=== PATIENT | male | born 1980 | race Caucasian/White ===

== ENCOUNTER 2020-03-05 21:16 | Inpatient (IN) | payer MEDICAID, SELFPAY ==
[~2020-03-05] VITALS: Ht 180.3 cm; Wt 150.6 kg
--- NOTE | 2020-03-05 21:16 | NUR ---
PT TAKEN TO BED 9
--- NOTE | 2020-03-05 21:20 | NUR ---
39 YEAR OLD MALE COMPLAINS OF SHORTNESS OF BREATHE X 3 DAYS. PT STATES HE STARTED DEVELOPING PAIN ON INSPIRATION AND UNABLE TO TAKE DEEP BREATHES. PT STATES UNABLE TO SLEEP X 3 DAYS AND UNABLE TO EAT ANYTHING BUT WATER X 3 DAYS. PT AOX4, BREATHING EVEN AND LABORED/SHALLOW, SKIN WARM AND DRY. BED IN LOWEST POSITION, LOCKED, BED RAIL UPX1. COVID PRECAUTIONS PER PROTOCOL. PT PLACED ON BEDSIDE MONITOR, ERMD MADE AWARE. PMH - HX PNEUMONIA X 8 YR AGO ALLERGIES - NKA
[2020-03-05] MEDS ORDERED: NACL 0.9% 1,000 ML IV ONE (21:30)
--- NOTE | 2020-03-05 21:48 | NUR ---
X-Ray at bedside.
--- NOTE | 2020-03-05 21:59 | NUR ---
INFLUENZA AND COVID SWAB SENT TO LAB
--- NOTE | 2020-03-05 22:02 | NUR ---
Dr. Waldron examining patient.
[2020-03-05 22:27] LABS: BASOPHILS % (AUTO) 0.7 % (0.0-2.0); HEMATOCRIT 41.4 % (36-52); HEMOGLOBIN 13.9 g/dL (12.0-18.0); LYMPHOCYTES # (AUTO) 1.2 K/uL (2.0-11.5); LYMPHOCYTES % (AUTO) 21.8 % (20.5-51.1); MEAN CORPUSCULAR HEMOGLOBIN 27 pg (27-31); MEAN CORPUSCULAR HGB CONC 34 g/dL (33-37); MEAN CORPUSCULAR VOLUME 79.2 fL (80-94); MONOCYTES # (AUTO) 0.7 K/uL (0.8-1.0); MONOCYTES % (AUTO) 12.4 % (1.7-9.3); NEUTROPHILS # (AUTO) 3.6 K/uL (1.8-7.7); NEUTROPHILS % (AUTO) 65.1 % (42.2-75.2); PLATELET COUNT (AUTO) 181 K/uL (140-450); RED BLOOD CELL COUNT(AUTO) 5.23 MIL/uL (4.20-6.10); RED CELL DISTRIBUTION WIDTH 14.8 % (11.6-13.7); WHITE BLOOD COUNT (AUTO) 5.6 K/uL (4.8-10.8)
--- NOTE | 2020-03-05 22:30 | NUR ---
PT O2 SATURATION DROPPED TO 89%, RR 45. PT PLACED ON 6L O2 NASAL CANNULA. ERMD MADE AWARE
--- NOTE | 2020-03-05 22:31 | NUR ---
RR 35, SPO2 97%. BREATHING NOT LABORED
[2020-03-05 22:38] LABS: C-REACTIVE PROTEIN QUANT 7.7 mg/dL (0.0-0.9)
[2020-03-05 22:43] LABS: LACTATE DEHYDROGENASE 206 U/L (85-227)
[2020-03-05 22:48] LABS: ANION GAP 16.8 (8-16); CREATININE 1.4 mg/dL (0.6-1.3); POTASSIUM 3.8 mmol/L (3.5-5.1)
[2020-03-05 22:55] LABS: ALBUMIN 3.6 g/dL (3.4-5.0); TOTAL BILIRUBIN 0.5 mg/dL (0.0-1.0)
[2020-03-05] MEDS ORDERED: HYDROcodone/APAP 7.5/325 MG 1 TAB PO PRN (22:55)
[2020-03-05] MEDS ORDERED: ACETAMINOPHEN 325 MG TAB PO PRN (22:55)
[2020-03-05] MEDS ORDERED: cefTRIAXone 1,000 MG VIAL ONE (22:55)
[2020-03-05] MEDS ORDERED: ONDANSETRON 4 MG/2 ML VIAL IVP PRN (22:55)
[2020-03-05 23:02] LABS: PROTHROMBIN TIME 10.3 secs (10.8-13.4)
--- NOTE | 2020-03-05 23:06 | NUR ---
PT AWAITING FOR POSSIBLE ADMISSION.
--- NOTE | 2020-03-05 23:15 | NUR ---
Dr. Tejada examining patient.
[2020-03-05 23:32] LABS: MAGNESIUM 1.7 mg/dL (1.8-2.4); THYROID STIMULATING HORMONE 1.6 uIU/mL (0.34-3.74)
--- NOTE | 2020-03-05 23:40 | NUR ---
Patient will be admitted to care of DR KEMP. Admited to TELE. Will go to room 114. Belongings list completed. Report to FADIA HERRERA.
--- NOTE | 2020-03-05 23:40 | NUR ---
PT ARRIVED FROM ER VIA WHEELCHAIR. RECEIVED REPORT FROM ER NURSE. PT IS AWAKE, ALERT, AND ORIENTED. AMBULATORY. ABLE TO MAKE NEEDS KNOWN. RESPIRATIONS ARE EVEN AND UNLABORED. PT IS ON O2 6LPM/NC. SKIN IS WARM, DRY, AND INTACT. ABDOMEN IS ROUND, SOFT, AND NON-TENDER. IV ACCESS NOTED ON R WRIST G22. SALINE LOCKED. PT DENIES ANY PAIN OR DISCOMFORT AT THIS TIME. PT IS CALM AND COOPERATIVE TO CARE. PT ORIENTED TO ROOM. VS TAKEN. MRSA SWAB COLLECTED. PLAN OF CARE DISCUSSED. NO QUESTIONS AT THIS TIME. CALL LIGHT WITHIN REACH. WILL CONTINUE TO MONITOR.
[2020-03-06] MEDS ORDERED: MAGNESIUM OXIDE 400 MG TAB PO ONE (00:15)
--- NOTE | 2020-03-06 01:30 | NUR ---
RT (SOTERO) SUGGESTED TO LOWER O2 TO 2LPM. PT NOW ON O2 2LPM/NC. PT NOT IN DISTRESS. O2 SAT 95%. WILL CONTINUE TO MONITOR.
[2020-03-06] MEDS ORDERED: MAGNESIUM OXIDE 400 MG TAB ONE (03:04)
[2020-03-06 04:00] VITALS: BP 135/92
--- NOTE | 2020-03-06 04:00 | NUR ---
VITAL SIGNS WITHIN NORMAL LIMITS. WOUND CARE DONE. PERINEAL CARE DONE WITH ASSISTANCE OF THE ELENI. PT TOLERATED CARE PROVIDED. PT NOT IN DISTRESS. RESPIRATIONS EVEN AND UNLABORED. SAFETY MEASURES IN PLACE. WILL CONTINUE TO MONITOR. Addendum: 03/06/20 at 0503 by Riki Araujo RN WRONG PATIENT NOTE. DISREGARD.
--- NOTE | 2020-03-06 04:00 | NUR ---
VITAL SIGNS WITHIN NORMAL LIMITS. PT IN BED RESTING WITH HOB ELEVATED. RESPIRATIONS EVEN AND UNLABORED. O2 IN PLACE. DENIES ANY PAIN OR DISCOMFORT AT THIS TIME. NO REQUESTS MADE AT THIS TIME. CALL LIGHT WITHIN REACH. WILL CONTINUE TO MONITOR.
[2020-03-06 06:49] LABS: BASOPHILS % (AUTO) 0.8 % (0.0-2.0); HEMATOCRIT 39.3 % (36-52); LYMPHOCYTES # (AUTO) 1.5 K/uL (2.0-11.5); MEAN CORPUSCULAR HEMOGLOBIN 27 pg (27-31); MEAN CORPUSCULAR HGB CONC 33 g/dL (33-37); MEAN CORPUSCULAR VOLUME 80.5 fL (80-94); MONOCYTES # (AUTO) 0.6 K/uL (0.8-1.0); MONOCYTES % (AUTO) 12.2 % (1.7-9.3); NEUTROPHILS # (AUTO) 3.1 K/uL (1.8-7.7); PLATELET COUNT (AUTO) 165 K/uL (140-450); RED BLOOD CELL COUNT(AUTO) 4.88 MIL/uL (4.20-6.10); RED CELL DISTRIBUTION WIDTH 14.5 % (11.6-13.7); WHITE BLOOD COUNT (AUTO) 5.2 K/uL (4.8-10.8)
[2020-03-06 06:50] LABS: ANION GAP 16.2 (8-16); CARBON DIOXIDE 25.5 mmol/L (21-32); CREATININE 1.3 mg/dL (0.6-1.3); POTASSIUM 3.7 mmol/L (3.5-5.1)
--- NOTE | 2020-03-06 07:12 | NUR ---
ENDORSED TO DAY SHIFT NURSE FOR CONTINUITY OF CARE. PT IS IN STABLE CONDITION.
--- NOTE | 2020-03-06 07:14 | NUR ---
RECEIVED PATIENT FROM COSTUME SHOP COORDINATOR NURSE FOR CONTINUITY OF CARE. PATIENT LAYING IN BED, SALINE LOCK IN PLACE. PATIENT ON 2L NC, NO S/S OF DISTRESS AT THIS TIME. BED IN LOW POSITION AND SAFETY MEASURES IN PLACE
[2020-03-06 08:00] VITALS: BP 139/82
[2020-03-06 08:09] LABS: MAGNESIUM 1.7 mg/dL (1.8-2.4); PHOSPHORUS 4.2 mg/dL (2.5-4.9)
--- NOTE | 2020-03-06 08:45 | NUR ---
PATIENT HAS BEEN SCREENED AND CATEGORIZED MODERATE NUTRITION RISK. PATIENT WILL BE SEEN WITHIN 3-5 DAYS OF ADMISSION. 03/08/20 03/10/[address]
[2020-03-06] MEDS ORDERED: ENOXAPARIN 40 MG/0.4 ML SYR SUBQ SCH (09:00)
--- NOTE | 2020-03-06 09:00 | NUR ---
PATIENT AWAKE, ALERT AND ORIENTED X4. O2 ON @ 2L VIA NC. BED IN LOW POSITION. NO S/S OF DISTRESS NOTED. CALL LIGHT WITHIN REACH. EDUCATED TO KEEP O2 IN PLACE AT ALL TIMES.
[2020-03-06] MEDS: DOCUSATE SODIUM 100 MG GELCAP PO SCH ×2 (09:54→20:17)
[2020-03-06] MEDS: AZITHROMYCIN 250 MG TAB PO SCH (09:55)
[2020-03-06] MEDS: ZINC SULF 220 MG CAP PO SCH (09:55)
[2020-03-06] MEDS: ASCORBIC ACID 500 MG TAB PO SCH (09:55)
[2020-03-06] MEDS: VITAMIN D 400 IU TAB PO SCH (09:56)
[2020-03-06] MEDS: FAMOTIDINE 20 MG TAB PO SCH (09:59)
[2020-03-06] MEDS ORDERED: MAG SULF 2000 MG/WATER PREMIX 50 ML IV SCH (10:00)
--- NOTE | 2020-03-06 10:19 | NUR ---
HOUSEKEEPER HEAD NOTE: Basic Screen: Yes High Risk DC Screen [place]: HAILY Alonso Relationship: Pre-Admission Living Arrangements: Lives with Other Prior ADL Independent Current Home Health Name/Tel: N/A Current DME/02 Name/Tel: N/A Current Hospice Name/Tel: N/A Current Dialysis Name/Tel: N/A Healthcare Decision Maker: Patient Advance Directive No Physician Orders for Life Sustaining Treatment Form No Patient/Family Have Educational Needs No Discipline: Case Mgt/Social Svcs Tentative Discharge Plan/Destination: No Needs Identified Will require assistance post discharge: No Referred to Manager Of Health: No Tentative Discharge Plan Summary: PATIENT IS A 39-YEAR-OLD MALE ADMITTED FOR PNEUMONIA AND R/O COVID. PATIENT HAS UNKNOWN PMHX. PATIENT WAS ADMITTED FROM HOME WHERE HE LIVES WITH AND CHILDREN. SW CONTACTED PATIENT'S HAILY [phone]. PER CARMNE, PATIENT IS INDEPENDENT WITH ALL ADLS AND REPORTS NO HISTORY OF SUBSTANCE ABUSE OR MENTAL HEALTH. TENTATIVE DISCHARGE PLAN IS FOR PATIENT TO RETURN HOME. NO RISK FACTORS WERE APPARENT. NO FURTHER NEEDS IDENTIFIED. Signature: SULY WADDELL Date: March 06, 2020 Time: 10:19
--- NOTE | 2020-03-06 11:30 | NUR ---
ROUNDS MADE. EDUCATED PATIENT TO KEEP O2 ON @ ALL TIMES TO PREVENT SOB, EDUCATED TO POSITION SELF ON PRONE AND TO CALL FOR ASSISTANCE WHEN GOING TO THE RESTROOM. PATIENT VERBALIZED UNDERSTANDING. CALL LIGHT WITHIN REACH.
[2020-03-06 12:00] VITALS: BP 120/77
--- NOTE | 2020-03-06 12:01 | NUR ---
DC PLANNIN YRS OLD MALE PATIENT WAS ADMITTED FROM HOME WITH A DX OF PNA, R/O COVID. PATIENT HAS A HX OF . CXR SHOWED PERIHILAR INTERSTITIAL INFILTRATE. D-DIMER 1630. COVID TEST AND BLOOD CULTURE PENDING. STARTED IVF, IV ABX WITH ROCEPHIN AND AZITHROMYCIN. CONSULTED WITH DR HAINES DEMAND GENERATOR MANAGER. DC PLAN PER MD'S RECOMMENDATION. CM TO FOLLOW. Addendum: 03/07/20 at 1534 by Elizabeth Lopez DC PLANNING: COVID TEST POSITIVE. SEEN BY DR ZAKI DAVIS AND ID DR ESTRELLA ,STARTED IV REMDESIVIR , FULL DOSE OF LOVENOX , PRONE POSITION. DC PLAN PER MD'S RECOMMENDATIONS CM TO FOLLOW. Addendum: 03/08/20 at 1151 by Marzena Lopez PATIENT WAS TRANSFERRED TO ICU TODAY DUE TO DESATURATION 87-89% AT 5LPM/NC. PATIENT WAS PLACED ON HIGH FLOW AT 30LPM - O2 SAT 96%. ON ROCEPHIN AND REMDESIVIR IV. [facility] PLASMA PENDING.
--- NOTE | 2020-03-06 12:58 | NUR ---
ROUNDS MADE. PATIENT EATING LUNCH AT THIS TIME. O2 @ 2L VIA NC IN PLACE. CALL LIGHT WITHIN REACH.
--- NOTE | 2020-03-06 15:00 | NUR ---
ROUNDS MADE. PATIENT ASLEEP IN BED, RESPIRATION EVEN AND UNLABORED. EASILY AROUSABLE BY NAME OR TOUCH. DENIES ANY PAIN OR DISCOMFORT AT THIS TIME. CALL LIGHT WITHIN REACH.
[2020-03-06 16:00] VITALS: BP 142/92
[2020-03-06 16:11] LABS: CHOL/HDL RATIO 5.6 (1-4.5)
--- NOTE | 2020-03-06 17:02 | NUR ---
ROUNDS MADE. PATIENT IS AWAKE, ALERT AND ORIENTED X4. O2 ON @ 2L VIA NC. DENIES ANY SOB OR DISCOMFORT. CALL LIGHT WITHIN REACH.
[2020-03-06 18:33] LABS: APPEARANCE,URINE CLEAR (CLEAR); BILIRUBIN,URINE NEGATIVE (NEGATIVE); BLOOD, URINE NEGATIVE (NEGATIVE); COLOR,URINE YELLOW (YELLOW); LEUKOCYTE ESTERASE ,URINE NEGATIVE (NEGATIVE); NITRITE, URINE NEGATIVE (NEGATIVE); UGLUCOSE NEGATIVE (NEGATIVE)
[2020-03-06 18:40] LABS: BARBITURATE, URINE NEGATIVE ng/ml (NEG <=200); BENZODIAZEPINE, URINE NEGATIVE ng/mL (NEG <=200); COCAINE, URINE NEGATIVE ng/mL (NEG <=300)
[2020-03-06 18:41] LABS: CANNABINOID, URINE POSITIVE ng/mL (NEG <=50); OPIATE, URINE NEGATIVE ng/mL (NEG <=2000); PHENCYCLIDINE SCREEN,URINE NEGATIVE ng/mL (NEG <=25)
--- NOTE | 2020-03-06 18:54 | NUR ---
DR. GARVIN NOTIFIED OF PATIENTS POSITIVE COVID RESULTS. CONTINUES ON 2L 02 VIA LA. LAYING IN BED RESTING, NO CURRENT COMPLAINTS OF PAIN OR DISCOMFORT. BED IN LOW POSITION AND CALL LIGHT WITHIN REACH. WILL ENDORSE PATIENT STATUS TO NIGHT NURSE FOR CONTINUITY OF CARE
--- NOTE | 2020-03-06 19:25 | NUR ---
RECEIVED ENDORSEMENT FROM AM SHIFT RN. PATIENT IS IN BED. RESPIRATION EVEN AND UNLABORED. NO SOB. ON 2L O2 VIA NC. HAS RIGHT WRIST 20G SALINE LOCK IV SITE. INTACT. NKA. FULL CODE. TELE MONITOR ATTACHED. DROPLET ISOLATION PRECAUTION OBSERVED AT ALL TIMES. LOW BED IN PLACE. PATIENT IS COVID 19(+). PLAN OF CARE WAS DISCUSSED. CALL LIGHT WITHIN REACH. WILL CONTINUE TO MONITOR.
[2020-03-06 20:00] VITALS: BP 130/85
--- NOTE | 2020-03-06 20:17 | NUR ---
ADMINISTERED DUE MED ORDERED. TOLERATED WELL. MED EDUCATION PROVIDED. WILL CONTINUE TO MONITOR.
[2020-03-06] MEDS ORDERED: COMMUNICATION ORDER MC SCH (21:35)
--- NOTE | 2020-03-06 21:45 | NUR ---
RECEIVED A CALL FROM DR. ESTRELLA AND ORDERED REMDESIVIR 200MG IV NOW AND REMDESIVIR 100MG IV QD X 4 MORE DAYS FOR COVID 19 (+). AND TO INCLUDE HIM IN THE CONSULT. ORDER NOTED AND CARRIED OUT.
--- NOTE | 2020-03-06 22:12 | NUR ---
SPOKE TO DR. ESTRELLA VIA TELEPHONE AND INFORM HIM THAT OUR [facility] IS CLOSE AT NIGHT, WHAT WE HAVE IS THE [facility] AND THAT WE DON'T HAVE THE REMDESIVIR ON HAND. ASKED IF OKAY TO START TOMORROW. SAID OK. ORDER NOTED. INFORMED [facility] BY THE CHARGE NURSE THAT THE REMDESIVIR WILL START TOMORROW.
--- NOTE | 2020-03-06 23:17 | NUR ---
PATIENT IS ASLEEP. AROUSABLE TO VERBAL. GAVE IV ANTIBIOTIC ORDERED. TOLERATED WELL. MED EDUCATION PROVIDED. WILL CONTINUE TO MONITOR.
[2020-03-06] MEDS: ENOXAPARIN 100 MG/ML SYR SUBQ SCH (23:57)
[2020-03-07] VITALS: BP 128/83
--- NOTE | 2020-03-07 | NUR ---
PATIENT IS AWAKE. NO SOB. NO DISTRESS NOTED. DUE MED GIVEN ORDERED. TOLERATED WELL. CALL LIGHT WITHIN REACH. WILL CONTINUE TO MONITOR.
--- NOTE | 2020-03-07 01:57 | NUR ---
PATIENT C/O THROAT PAIN 03/21. NORCO PO PRN GIVEN ORDERED. MED EDUCATION PROVIDED. WILL CONTINUE TO MONITOR.
--- NOTE | 2020-03-07 02:57 | NUR ---
PATIENT IS SLEEPING. NO PAIN NOTED. NO SOB. CALL LIGHT WITHIN REACH. WILL CONTINUE TO MONITOR.
[2020-03-07 04:00] VITALS: BP 135/94
--- NOTE | 2020-03-07 06:37 | NUR ---
PATIENT IS AWAKE. WATCHING TV. NO DISTRESS NOTED. DENIES PAIN. WILL CONTINUE TO MONITOR.
--- NOTE | 2020-03-07 07:00 | NUR ---
RECEIVED ENDORSEMENT FROM MORTGAGE COORDINATOR RN, EDDIE, FOR CONTINUITY OF CARE. PATIENT IS IN BED. RESPIRATION EVEN AND UNLABORED, ON 2L O2 VIA NC WITH O2 STAT OF 94%, NO SIGNS OF DISTRESS NOTED. HAS RIGHT WRIST 20G SALINE LOCK IV SITE. INTACT. TELE MONITOR ATTACHED. DROPLET ISOLATION PRECAUTION OBSERVED AT ALL TIMES FOR POSITIVE COVID-19. LOW BED IN PLACE. POC WAS DISCUSSED. CALL LIGHT WITHIN REACH. WILL CONTINUE TO MONITOR.
--- NOTE | 2020-03-07 07:13 | NUR ---
PATIENT IS STABLE. ENDORSED PATIENT TO AM SHIFT RN FOR CONTINUITY OF CARE.
[2020-03-07 07:34] LABS: BASOPHILS % (AUTO) 0.8 % (0.0-2.0); EOSINOPHILS % (AUTO) 0.2 % (0.0-4.0); HEMATOCRIT 42.2 % (36-52); LYMPHOCYTES # (AUTO) 1.1 K/uL (2.0-11.5); LYMPHOCYTES % (AUTO) 19.6 % (20.5-51.1); MEAN CORPUSCULAR HEMOGLOBIN 27 pg (27-31); MEAN CORPUSCULAR HGB CONC 33 g/dL (33-37); MEAN CORPUSCULAR VOLUME 80.4 fL (80-94); MONOCYTES # (AUTO) 0.5 K/uL (0.8-1.0); MONOCYTES % (AUTO) 9.9 % (1.7-9.3); NEUTROPHILS # (AUTO) 3.8 K/uL (1.8-7.7); NEUTROPHILS % (AUTO) 69.5 % (42.2-75.2); PLATELET COUNT (AUTO) 170 K/uL (140-450); RED BLOOD CELL COUNT(AUTO) 5.24 MIL/uL (4.20-6.10); RED CELL DISTRIBUTION WIDTH 14.7 % (11.6-13.7); WHITE BLOOD COUNT (AUTO) 5.4 K/uL (4.8-10.8)
[2020-03-07 07:42] LABS: ALBUMIN 3.5 g/dL (3.4-5.0); ANION GAP 11.7 (8-16); CARBON DIOXIDE 29.4 mmol/L (21-32); CREATININE 1.2 mg/dL (0.6-1.3); MAGNESIUM 1.9 mg/dL (1.8-2.4); PHOSPHORUS 4.6 mg/dL (2.5-4.9); POTASSIUM 4.1 mmol/L (3.5-5.1); TOTAL BILIRUBIN 0.5 mg/dL (0.0-1.0)
--- NOTE | 2020-03-07 07:50 | NUR ---
ASSESSMENT DONE, PT. VERBALIZES NO PAIN BUT COMPLAINS OF DIFFICULTY BREATHING DEEPLY. PROVIDED INCENTIVE SPIROMETER BY THE BEDSIDE AND ENCOURAGED PRONING. WILL CONTINUE TO MONITOR.
[2020-03-07 08:00] VITALS: BP 145/85
[2020-03-07] MEDS ORDERED: MISC INJECTION 1 EA in NACL 0.9% 100 ML IV SCH (09:00)
[2020-03-07] MEDS ORDERED: ENOXAPARIN 100 MG/ML SYR SUBQ SCH (09:00)
[2020-03-07] MEDS: ZINC SULF 220 MG CAP PO SCH (09:12)
[2020-03-07] MEDS: VITAMIN D 400 IU TAB PO SCH (09:13)
[2020-03-07] MEDS: ASCORBIC ACID 500 MG TAB PO SCH (09:15)
[2020-03-07] MEDS: DOCUSATE SODIUM 100 MG GELCAP PO SCH ×2 (09:15→22:22)
--- NOTE | 2020-03-07 09:15 | NUR ---
MORNING MEDICATIONS GIVEN. NO SIGNS OF DISTRESS NOTED. WILL CONTINUE TO MONITOR.
[2020-03-07] MEDS: FAMOTIDINE 20 MG TAB PO SCH (09:16)
[2020-03-07] MEDS: AZITHROMYCIN 250 MG TAB PO SCH (09:16)
--- NOTE | 2020-03-07 09:30 | NUR ---
SPOKE TO PT'S MOTHER, MARTHA, ABOUT PT. UPDATES ON CONDITION. PT'S FAMILY VERBALIZES UNDERSTANDING. WILL CONTINUE TO MONITOR.
[2020-03-07 12:00] VITALS: BP 138/95
--- NOTE | 2020-03-07 12:10 | NUR ---
DR. HAINES BY THE BEDSIDE. ENCOURAGED PT. TO PRONE. PT. VERBALIZES UNDERSTANDING. WILL CONTINUE TO MONITOR.
[2020-03-07] MEDS: ENOXAPARIN 100 MG/ML SYR SUBQ SCH (12:16)
[2020-03-07 16:00] VITALS: BP 147/94
--- NOTE | 2020-03-07 17:50 | NUR ---
IV LINE INFILTRATED. IV LINE REMOVED AND NEW IV PLACED ON LEFT HAND 24G. PATENT AND FLUSHES WELL. WILL CONTINUE TO MONITOR.
--- NOTE | 2020-03-07 19:00 | NUR ---
ENDORSED TO CABLE LAYER NURSE, MARIAH, FOR CONTINUITY OF CARE.
--- NOTE | 2020-03-07 19:00 | NUR ---
RECEIVED REPORT AT BEDSIDE FROM ЕЛЕНА HERRERA DAYSHIFT NURSE FOR CONTINUITY OF CARE, PT IN STABLE CONDITION.
[2020-03-07 20:00] VITALS: BP 122/79
--- NOTE | 2020-03-07 20:00 | NUR ---
PT LYING ON HIS BACK IN BED HE IS AOX4 WITH SKIN INTACT. PT HAS GOWN OFF AND SAID HE WAS WARM. PT ASKING QUESTIONS REGARDING COVID DIAGNOSIS AND WAS EDUCATED AT BEDSIDE. PT VERBALIZED UNDERSTANDING. PT SAID HE FELT ANXIOUS BUT DID NOT WANT TO BE MEDICATED FOR ANXIETY. PT TRISTAN ANY PAIN HE IS ON 3 LITERS VIA N/C. HE HAS AN INTERMITTED PRODUCTIVE COUGH WITH A SMALL AMOUNT OF THICK YELLOW SECRETIONS. PT ABLE TO AMBULATE BUT HAS MILD GENERALIZED WEAKNESS DUE TO COVID. V/S FOLLOWS: T 97.8 P 112 R 20 B/P 126/84 02 93% WITH 3 LITERS VIA N/C. ALL DROPLET PRECAUTIONS IN PLACE.
--- NOTE | 2020-03-07 21:00 | NUR ---
PT IN BED HE HAS 3 LITERS VIA N/C. IV SITE ON LEFT HAND 24G INTACT AND ASYMPTOMATIC AND SALINE LOCKED AT THIS TIME. PT WAS GIVEN ORDERED COLACE, EDUCATION REGARDING MEDICATION PROVIDED AT BEDSIDE. PT ENCOURAGED TO LIE PRONE TO ASISST WITH BREATHING. PT ACKNOWLEDGED UNDERSTANDING. ALL DROPLET PRECAUTIONS IN PLACE.
--- NOTE | 2020-03-07 23:30 | NUR ---
PT WAS RESTING WITH EYES CLOSED IN A PRONE POSITION BUT IS AROUSABLE TO NAME AND LIGHT TOUCH. IV ABT ROCEPHIN WAS HUNG AND RUNNING AT 100MLS/HR ORDERED. EDUCATION REGARDING MEDICATION AND ITS SIDE EFFECTS PROVIDED AT BEDSIDE, PT VERBALIZED UNDERSTANDING. PT WAS ALSO GIVEN LOVENOX SQ SHOT IN LOWER ABDOMEN ORDERED. EDUCATION REGARDING PURPOSES OF LOVENOX AND SIDE EFFECTS PROVIDED AT BEDSIDE. PT DECLINES PAIN AND DOESN'T WANT ANY OTHER PRN AT THIS TIME. ALL DROPLET PRECAUTIONS IN PLACE. V/S FOLLOWS: T 97.8 P 112 R 20 B/P 126/84 02 93% WITH 3 LITERS VIA N/C.
[2020-03-08] VITALS (10 sets, daily range): BP systolic 119–151; BP diastolic 63–94
[2020-03-08] MEDS: ENOXAPARIN 100 MG/ML SYR SUBQ SCH ×2 (00:33→12:55)
--- NOTE | 2020-03-08 04:00 | NUR ---
PT IN BED RESTING WITH EYES CLOSED BUT AROUSABLE TO NAME AND LIGHT TOUCH. PT TRISTAN ANY PAIN , HE WAS FOUND WITH N/C OFF HIS NOSE. IT WAS PLACED BACK IN HIS NOSE AND V/S FOLLOWS: T 97.0 P 108 R 20 B/P 131/80 02 93% ON 3 LITERS VIA N/C. IV SITE INTACT AND ASYMPTOMATIC. ALL DROPLET PRECAUTIONS IN PLACE .
--- NOTE | 2020-03-08 07:25 | NUR ---
RECEIVED REPORT FROM PHYSICS DEPARTMENT CHAIR NURSE FOR CONTINUITY OF CARE. PT IS AA&OX4. LAC 24G IV IS PATENT AND INTACT, TKO. RESPIRATIONS ARE EVEN AND UNLABORED, BREATHING TO RA. REGULAR DIET. COVID POSITIVE; DROPLET PRECAUTIONS IN PLACE. TELE MONITOR ATTACHED. SAFETY MEASURES IN PLACE; BED IN LOW POSITION, CALL LIGHT WITHIN REACH. WILL CONTINUE TO MONITOR. Addendum: 03/08/20 at 0821 by Kirti Nunez RN *BREATHING TO 3L NASAL CANNULA.
[2020-03-08 07:27] LABS: BASOPHILS % (AUTO) 0.5 % (0.0-2.0); HEMATOCRIT 40.2 % (36-52); HEMOGLOBIN 13.6 g/dL (12.0-18.0); LYMPHOCYTES # (AUTO) 1.3 K/uL (2.0-11.5); LYMPHOCYTES % (AUTO) 23.6 % (20.5-51.1); MEAN CORPUSCULAR HEMOGLOBIN 27 pg (27-31); MEAN CORPUSCULAR HGB CONC 34 g/dL (33-37); MEAN CORPUSCULAR VOLUME 78.4 fL (80-94); MONOCYTES # (AUTO) 0.4 K/uL (0.8-1.0); MONOCYTES % (AUTO) 8.2 % (1.7-9.3); NEUTROPHILS # (AUTO) 3.6 K/uL (1.8-7.7); NEUTROPHILS % (AUTO) 67.7 % (42.2-75.2); PLATELET COUNT (AUTO) 181 K/uL (140-450); RED BLOOD CELL COUNT(AUTO) 5.12 MIL/uL (4.20-6.10); RED CELL DISTRIBUTION WIDTH 14.7 % (11.6-13.7); WHITE BLOOD COUNT (AUTO) 5.4 K/uL (4.8-10.8)
--- NOTE | 2020-03-08 07:45 | NUR ---
PT COMPLAINS OF "COUGHING FIT" AND SOB. HOB RAISED, O2 INCREASED FROM 3 L NC TO 5L NC; 02 SAT AT 87-89% ON 5L NC. HEART RATE BETWEEN 113-119 BPM. RTMAR, IS AT BEDSIDE; MDI GIVEN, AND HUMIDIFIER ATTACHED TO O2. RESIDENT DOCTORS NOTIFIED. SAFETY MEASURES IN PLACE. TELE MONITOR ATTACHED. WILL CONTINUE TO MONITOR.
[2020-03-08 07:48] LABS: ALBUMIN 3.3 g/dL (3.4-5.0); ANION GAP 13.5 (8-16); CREATININE 1.2 mg/dL (0.6-1.3); MAGNESIUM 1.8 mg/dL (1.8-2.4); POTASSIUM 3.5 mmol/L (3.5-5.1); TOTAL BILIRUBIN 0.4 mg/dL (0.0-1.0)
[2020-03-08] MEDS ORDERED: ALBUTEROL HFA MDI 90 MCG/ACTUATION 8 GM INH PRN (08:30)
[2020-03-08] MEDS ORDERED: COMMUNICATION ORDER MC PRN (08:50)
--- NOTE | 2020-03-08 09:29 | NUR ---
GAVE REPORT TO ICU NURSE, PT WAS TRANSFERRED TO ICU BED-7.
--- NOTE | 2020-03-08 09:30 | NUR ---
Bedside report taken form Kirti HERRERA.Pt with left hand 24 gauge saline lock,iv patent and intact,flushable.No co pain nor any discomfort.St on the monitor.Placed on droplet precaution.Instructed pt regarding isolation precaution due to COVID 19.Pt verbalized understanding.
--- NOTE | 2020-03-08 09:30 | NUR ---
PT TRANSFERRED FROM TELE TO ICU 7 VIA NC AND PLACED ON HIGH FLOW AT 30 LPM AND .60 FIO2 PT AWAKE ALERT WITH MASK ON SEEMS TO BE HANDLING HIGH FLOW WELL PT AWAKE ALERT WILL CONTINUE TO MONITOR PT ALL DONE PER DR HAINES
[2020-03-08] MEDS: FAMOTIDINE 20 MG TAB PO SCH (09:57)
[2020-03-08] MEDS: ZINC SULF 220 MG CAP PO SCH (09:57)
[2020-03-08] MEDS: AZITHROMYCIN 250 MG TAB PO SCH (09:57)
[2020-03-08] MEDS: ASCORBIC ACID 500 MG TAB PO SCH (09:58)
[2020-03-08] MEDS: DOCUSATE SODIUM 100 MG GELCAP PO SCH ×2 (09:58→21:00)
[2020-03-08] MEDS: REMDESIVIR IV SCH (10:13)
[2020-03-08] MEDS: SODIUM CHLORIDE IV SCH (10:13)
[2020-03-08] MEDS: VITAMIN D 400 IU TAB PO SCH (10:21)
[2020-03-08] MEDS ORDERED: IVERMECTIN PO SCH (10:30)
[2020-03-08] MEDS ORDERED: methylPREDNISolone SS 40 MG/ML VIAL IVP SCH (12:00)
[2020-03-08] MEDS: methylPREDNISolone SS 40 MG/ML VIAL IVP SCH ×2 (12:54→18:50)
[2020-03-08] MEDS: ALBUTEROL HFA MDI 90 MCG/ACTUATION 8 GM INH SCH ×2 (13:33→20:09)
[2020-03-08] MEDS ORDERED: FUROSEMIDE 40 MG/4 ML VIAL IVP SCH (17:34)
--- NOTE | 2020-03-08 19:00 | NUR ---
BLOOD BANK CALLED STATING PLASMA IS READY .RESIDENT CALLED TO GET CONSENT AND DISCUSS WITH PT.
--- NOTE | 2020-03-08 19:10 | NUR ---
REPORT GIVEN TO Frantz FOR CONTINUITY OF CARE.
--- NOTE | 2020-03-08 19:30 | NUR ---
STARTED 20 GAUGE AT RIGHT FOREARM FOR PLASMA.ENDORSED TO Frantz TO CALL LAB SO THEY WILL THAW PLASMA
--- NOTE | 2020-03-08 20:00 | NUR ---
RECEIVED REPORT FROM DAYSHIFT NURSE AT PATIENTS BEDSIDE. PT AWAKE AND ALERT, FOLLOWS ALL COMMANDS AND MAKES NEEDS KNOWN. PERRLA, 3MM BRISK. ON HIGH FLOW NASAL CANNULA, 30L, WITH 60% FI02.SATURATIONS 93%. LUNG SOUNDS SOME RHONCHI, DIMINISHED AT BASES. BREATHING IS EVEN AND TACHYPNEIC. S1S2, SINUS TACH ON MONITOR. SKIN IS COOL TO TOUCH, SLIGHTLY DIAPHORETIC, TEMP IS LOW, 95.9-96.2. LEFT HAND 24 G, FLUSHED AND PATENT, WITHOUT SYMPTOMS, RUNNING NS AT TKO-5ML. RIGHT FOREARM 20G, FLUSHED WITHOUT SYMPTOMS. ABDOMEN IS LARGE AND NONTENDER, BOWEL SOUNDS ACTIVE/ Addendum: 03/09/20 at 0431 by Marilee Womack RN URINAL AT BEDSIDE, CLEAR YELLOW URINE IN URINAL. ABLE TO MOVE ALL EXTREMITIES, WITH SOME MILD WEAKNESS NOTED. ORIENTED PATIENT TO CALL LIGHT, TREATMENT PLAN, AND CALL LIGHT AND ALL VALUABLES WITHIN REACH. SIDERAILS UP x3, HOB 30 DEGREES, WILL CONTINUE TO MONITOR.
--- NOTE | 2020-03-08 21:05 | NUR ---
PATIENT REFUSED SCHEDULED MEDICATION COLACE, REPORTS DOES NOT HAVE ANY PROBLEMS WITH USING RESTROOM AND ALSO NO BATHROOM IN ICU. DESPITE PROVIDING EDUCATION AND NEED FOR MEDICATION, PATIENT INSISTS ON NOT TAKING MEDICATION. ASSISTED PATIENT WITH REPOSITIONING. PATIENT UNABLE TO SIT UP ON OWN AT SIDE OF BED TO DANGLE, PATIENT REPORTS NOT BEING ABLE TO FULLY INHALE OR EXHALE WITHOUT PAIN AT CHEST. ASSURED PATIENT WHEN HIS OXYGENATION IMPROVES WE CAN TRY MORE ACTIVITY BUT FOR NOW, REST. VERBALIZES UNDERSTANDING. DENIES PAIN. Addendum: 03/09/20 at 0703 by Marilee Womack RN EMPTIED 850 ML URINE
--- NOTE | 2020-03-08 22:10 | NUR ---
[facility] INITIATED, Y TUBING PRIMED WITH NS. PROVIDED EDUCATION TO PATIENT IN RECOGNIZING ALLERGIC REACTIONS, VERBALIZES UNDERSTANDING. TWO NURSE VERIFICATION COMPLETE. WILL MONITOR. PATIENTS TEMPERATURE RANGES LOW: 95.5, PROVIDED MORE BLANKETS AND SOCKS, PATIENT REFUSED BEAR HUGGER. SKIN IS SLIGHTLY COOL TO TOUCH BUT PATIENT IS TOLERATING WELL.
--- NOTE | 2020-03-08 23:10 | NUR ---
FIRST UNIT OF [facility] COMPLETE, NO INTERRUPTIONS, NO REACTIONS NOTED. ORDERED 2 UNITS BUT ONLY 1 UNIT AVAILABLE. WILL FOLLOWUP. NO COMPLAINTS AT THIS TIME, NO DISTRESS NOTED, DENIES PAIN.
[2020-03-09] VITALS (12 sets, daily range): BP systolic 106–143; BP diastolic 48–98
[2020-03-09] MEDS: ALBUTEROL HFA MDI 90 MCG/ACTUATION 8 GM INH SCH ×4 (01:00→19:32)
--- NOTE | 2020-03-09 01:10 | NUR ---
EMPTIED 500 ML OF CLEAR YELLOW URINE. PROVIDED CLEANSING WIPES FOR PERINEAL CARE. PATIENT INDEPENDENT, ONLY NEEDS ASSISTANCE WITH POSITIONING IN BED. PATIENT IS SLIGHTLY SOB WITH MODERATE ACTIVITY. HIGH FLOW NC IN PLACE. DENIES PAIN. REQUESTING ICE WATER, CARRIED OUT.
--- NOTE | 2020-03-09 03:10 | NUR ---
EMPTIED 850ML CLEAR YELLOW URINE. PATIENT RESTING WELL IN BED, ALERT TO NAME. ALL VITALS WITHIN REACH EXCEPT HEART RATE IS ELEVATED, ST ON MONITOR-110's. ORIENTED TO CALL LIGHT, ALL VALUABLES WITHIN REACH. ALL NEEDS MET AT THIS TIME.
--- NOTE | 2020-03-09 04:56 | NUR ---
PT REMAINS ON HFNC AT 60%. WATER CHANGED. PT IS ALERT AND ORIENTATED. PT IS IN NO DISTRESS. WILL CONT TO MONITOR
--- NOTE | 2020-03-09 06:05 | NUR ---
PATIENT WOKE UP FRANTICALLY, REPORTS NASAL CANNULA WAS LEAKING EXCESS WATER. PATIENT BECAME ANXIOUS AND ALSO NEEDED TO USE RESTROOM. PATIENT JUMPED OUT OF BED AND YANKED ALL EQUIPMENT OFF-PULSE OX, EKG LEADS, NASAL CANNULA, BP CUFF AND THE PERIPHERAL IV TO LEFT WRIST. PATIENT WAS SCREAMING HE NEEDED TO USE RESTROOM AND DIDNT WANT TO HAVE A BOWEL MOVEMENT ON THE BED. RN AT BEDSIDE, ORIENTED PATIENT BACK TO BED AND BEDPAN AVAILABLE, PATIENT SCREAMING HE IS GONNA PASS OUT, PATIENT JUMPED BACK IN BED BUT REFUSED TO USE THE BATHROOM, PATIENT JUMPED BACK ON THE FLOOR AND PLACED BEDPAN ON THE FLOOR AND PATIENT STARTED TO USE THE BEDPAN IN SQUAT POSITION. 2 RN's STAYED WITH PATIENT UNTIL DONE. ORIENTED PATIENT TO BED AND IMPORTANCE OF NOT PULLING OFF EQUIPMENT. REAPPLIED ALL EQUIPMENT, VITALS BACK WITHIN RANGE. CLEANED AND PROVIDED PERINEAL CARE. PT VERBALIZES UNDERSTANDING. CALL LIGHT WITHIN REACH, BEDPAN IN REACH. SIDERAILS UP x4, WILL CONTINUE TO MONITOR.
[2020-03-09] MEDS: methylPREDNISolone SS 40 MG/ML VIAL IVP SCH ×5 (06:13→23:18)
[2020-03-09 06:32] LABS: BASOPHILS % (AUTO) 0.1 % (0.0-2.0); HEMATOCRIT 41.6 % (36-52); LYMPHOCYTES # (AUTO) 0.7 K/uL (2.0-11.5); LYMPHOCYTES % (AUTO) 24.6 % (20.5-51.1); MEAN CORPUSCULAR HEMOGLOBIN 27 pg (27-31); MEAN CORPUSCULAR HGB CONC 34 g/dL (33-37); MONOCYTES # (AUTO) 0.2 K/uL (0.8-1.0); MONOCYTES % (AUTO) 7.3 % (1.7-9.3); PLATELET COUNT (AUTO) 208 K/uL (140-450); RED BLOOD CELL COUNT(AUTO) 5.26 MIL/uL (4.20-6.10); RED CELL DISTRIBUTION WIDTH 14.8 % (11.6-13.7); WHITE BLOOD COUNT (AUTO) 2.9 K/uL (4.8-10.8)
[2020-03-09 07:02] LABS: ALBUMIN 3.4 g/dL (3.4-5.0); ANION GAP 15.2 (8-16); CARBON DIOXIDE 28.5 mmol/L (21-32); CREATININE 1.1 mg/dL (0.6-1.3); MAGNESIUM 2.1 mg/dL (1.8-2.4); PHOSPHORUS 3.9 mg/dL (2.5-4.9); POTASSIUM 3.7 mmol/L (3.5-5.1); TOTAL BILIRUBIN 0.4 mg/dL (0.0-1.0)
--- NOTE | 2020-03-09 07:30 | NUR ---
RECEIVED CHANGE OF SHIFT REPORT FROM DAY SHIFT NURSE. PT WAS FOUND LAYING IN BED W/ HOB AT 30 DEGREES. APPEARING TO BE RESTING. PT IS ON HIGH FLOW NC AT 30 LPM W/ FIO2 AT 60%, PT IS SR TO ST ON MONITOR. EQUAL RISE AND FALL OF THE IS OBSERVED. PT HAS URINAL AT BEDSIDE. PT HAS AWAKEN MOMENTARILY AND HAS TAKEN OFF NC. WAS REMINDED TO KEEP HIGH FLOW NC ON. PT WAS COOPERATIVE. WILL CONTINUE TO MONITOR.
--- NOTE | 2020-03-09 08:00 | NUR ---
LUNG SOUNDS COARSE. BREATHING APPEARED SHALLOW. INTERMITTENT COUGHING NOTED W/ BROWN SPUTUM. PT GIVEN EMESIS BAG TO SPIT INSIDE OF. S1S2 HEARD. +2 RADIAL PULSES, ST ON MONITOR. PT GIVEN BREAKFAST, STATED HE DOESN'T FEEL TOO HUNGRY. ENCOURAGED TO DRINK ENSURE. BOWEL SOUNDS PRESENT. PT DENIES PAIN. PT ABLE TO MOVE EXTREMITIES. PT HAS 20G LOCATED IN RIGHT POSTERIOR LOWER ARM. LINE IS PATENT, ASYMPTOMATIC AND INTACT. BED IS LOCKED. HOB 30 DEGREES. PT COOPERATIVE W/ HIGH FLOW NC. CALL LIGHT WITHIN REACH. WILL CONTINUE TO MONITOR.
--- NOTE | 2020-03-09 08:30 | NUR ---
F/U W/ BLOOD BANK REGARDING FFP. HAS NOT ARRIVED. INFORMED NURSE THEY WILL CALL WHEN FFP ARRIVES.
[2020-03-09] MEDS: ASCORBIC ACID 500 MG TAB PO SCH (08:31)
[2020-03-09] MEDS: FAMOTIDINE 20 MG TAB PO SCH (08:31)
[2020-03-09] MEDS: VITAMIN D 400 IU TAB PO SCH (08:31)
[2020-03-09] MEDS: AZITHROMYCIN 250 MG TAB PO SCH (08:31)
[2020-03-09] MEDS: DOCUSATE SODIUM 100 MG GELCAP PO SCH ×2 (08:31→20:08)
[2020-03-09] MEDS: ZINC SULF 220 MG CAP PO SCH (08:31)
[2020-03-09] MEDS: SODIUM CHLORIDE IV SCH (08:55)
[2020-03-09] MEDS: REMDESIVIR IV SCH (08:55)
--- NOTE | 2020-03-09 10:00 | NUR ---
ENCOURAGED PT TO EAT MORE AND TO DRINK ENSURE SUPPLEMENT. PT IS COOPERATIVE AND HAS STATED HE WILL TRY. MANAGED TO DRINK 3/4 OF ONE BOTTLE OF ENSURE.
--- NOTE | 2020-03-09 11:00 | NUR ---
PT IS TALKING ON THE PHONE W/ FAMILY. NO APPARENT SIGNS OF DISTRESS NOTED. PT SPO2 RANGING FROM 87-90% ON HFNC AT 30 LPM. FIO2 60%. WILL CONTINUE TO MONITOR.
[2020-03-09] MEDS: ENOXAPARIN 100 MG/ML SYR SUBQ SCH ×3 (11:24→23:19)
--- NOTE | 2020-03-09 13:30 | NUR ---
RT AT BEDSIDE. INCREASED FIO2 65%. SPO2 RANGING FROM 84-86% AT 30LPM VIA HFNC
--- NOTE | 2020-03-09 14:11 | NUR ---
825 ML UO VIA URINAL
--- NOTE | 2020-03-09 14:31 | NUR ---
03/09/20 RD INITIAL ASSESSMENT COMPLETED PLEASE REFER TO NUTRITION ASSESSMENT UNDER CARE ACTIVITY FOR ESTIMATED NUTRITIONAL NEEDS. 1. CONTINUE MECHANICAL SOFT DIET TOLERATED 2. CONTINUE ENSURE BID 3. ENCOURAGE INCREASING PO INTAKE 4. RD TO FOLLOW-UP 2-3 DAYS, HIGH RISK KISHA GARCIA, RD
--- NOTE | 2020-03-09 15:10 | NUR ---
DR. HAINES AT PT BEDSIDE. PT WILL START PRONING POSITION
--- NOTE | 2020-03-09 15:40 | NUR ---
PT PLACED IN REVERSE TRENDELENBURG AND PRONE POSITION. PT ENCOURAGED TO COUGH AND TO USE INCENTIVE SPIROMETER. PT COOPERATIVE
--- NOTE | 2020-03-09 18:00 | NUR ---
WALKED BY PT'S ROOM TO DISCOVER PT OUT OF BED W/OUT GOWN, MONITORING DEVICES, AND HFNC DISCONNECTED. PT WAS IMMEDIATELY ESCORTED BACK TO BED BY NURSE. PT APPEARED TO NOT HAVE REMEMBERED HE IS IN THE HOSPITAL, WELL WHAT HIS POC WAS. PT WAS ALSO APPEARED ANXIOUS, STATING HE DOESN'T UNDERSTAND WHY HE IS HERE. PT WAS PUT IN THE PRONE POSITION W/ HFNC BACK ON. BED WAS IN REVERSE TRENDELENBURG AND LOCKED. WILL CONTINUE TO MONITOR.
--- NOTE | 2020-03-09 19:20 | NUR ---
ENDORSED PT TO CRM TECHNICAL LEAD NURSE TO ENSURE CONTINUITY OF CARE
--- NOTE | 2020-03-09 19:21 | NUR ---
REPORT RECEIVED FROM AM NURSE AT BEDSIDE. PT IN STABLE CONDITION. AAOX4 WITH INTERMITTENT CONFUSION AT TIMES. PT IS AMBULATORY BUT HAS UNSTEADY GAIT AND BECOMES LIGHTHEADED. NO COMPLAINTS OF PAIN. NO SOB ON 30L ON HIGH FLOW MASK O2 SATURATION 100%. AFEBRILE. PT USES URINAL. USES BEDPAN. PT ON REGULAR DIET. DRY WEIGHT 158KG. POSITIVE FOR COVID19 ON DROPLET PRECAUTION. IV SITE R FA 20G SL PATENT AND INTACT. SKIN WARM, DRY, AND INTACT WITH NO OPEN WOUNDS. BED LOCKED IN LOW POSITION. CALL VERA WITHIN REACH. SAFETY PRECAUTION IN PLACE. ALL NEEDS MET AT THIS TIME.
--- NOTE | 2020-03-09 21:00 | NUR ---
PT REFUSED COLACE.
--- NOTE | 2020-03-09 23:18 | NUR ---
ROCEPHIVic HAJI. SOLUMEDROL GIVEN IVP. LOVENOX GIVEN SUBQ. PT TOLERATED WELL.
[2020-03-10] VITALS (12 sets, daily range): BP systolic 103–139; BP diastolic 46–90
[2020-03-10] MEDS: ALBUTEROL HFA MDI 90 MCG/ACTUATION 8 GM INH SCH ×4 (01:00→19:49)
--- NOTE | 2020-03-10 01:01 | NUR ---
PT REFUSED HHN TX. WANTED TO SLEEP. PT IS IN NO DISTRESS. WILL CONT TO MONITOR
--- NOTE | 2020-03-10 01:15 | NUR ---
PT SLEEPING COMFORTABLY IN PRONE POSITION. NO S/S OF DISTRESS NOTED. WILL CONTINUE TO MONITOR.
--- NOTE | 2020-03-10 03:45 | NUR ---
PT AWAKE AND ALERT SAYS HES UNABLE TO SLEEP ANYMORE. GAVE PATIENT WATER AND SOME OF THE SOUP FROM DINNER. PT ONLY DRANK THE SOUP. PT WILL BE WATCHING TV. NO S/S OF DISTRESS.
[2020-03-10] MEDS: methylPREDNISolone SS 40 MG/ML VIAL IVP SCH ×3 (05:12→18:07)
--- NOTE | 2020-03-10 05:12 | NUR ---
SOLUMEDROL GIVEN IVP. PT TOLERATED WELL.
[2020-03-10 06:19] LABS: BASOPHILS % (AUTO) 0.3 % (0.0-2.0); EOSINOPHILS % (AUTO) 0.1 % (0.0-4.0); HEMATOCRIT 41.7 % (36-52); HEMOGLOBIN 13.8 g/dL (12.0-18.0); LYMPHOCYTES # (AUTO) 0.9 K/uL (2.0-11.5); LYMPHOCYTES % (AUTO) 13.3 % (20.5-51.1); MEAN CORPUSCULAR HEMOGLOBIN 26 pg (27-31); MEAN CORPUSCULAR HGB CONC 33 g/dL (33-37); MEAN CORPUSCULAR VOLUME 79.3 fL (80-94); MONOCYTES # (AUTO) 0.4 K/uL (0.8-1.0); MONOCYTES % (AUTO) 5.7 % (1.7-9.3); NEUTROPHILS # (AUTO) 5.2 K/uL (1.8-7.7); NEUTROPHILS % (AUTO) 80.6 % (42.2-75.2); PLATELET COUNT (AUTO) 254 K/uL (140-450); RED BLOOD CELL COUNT(AUTO) 5.25 MIL/uL (4.20-6.10); RED CELL DISTRIBUTION WIDTH 14.5 % (11.6-13.7); WHITE BLOOD COUNT (AUTO) 6.4 K/uL (4.8-10.8)
[2020-03-10 06:39] LABS: ALBUMIN 3.3 g/dL (3.4-5.0); ANION GAP 14.1 (8-16); CARBON DIOXIDE 29.7 mmol/L (21-32); CREATININE 1.2 mg/dL (0.6-1.3); MAGNESIUM 2.2 mg/dL (1.8-2.4); POTASSIUM 3.8 mmol/L (3.5-5.1); TOTAL BILIRUBIN 0.3 mg/dL (0.0-1.0)
--- NOTE | 2020-03-10 07:15 | NUR ---
RECEIVED BEDSIDE REPORT FROM MANAGER LAW NURSE, PT STABLE, NO DISTRESS NOTED, PT IN PRONE POSITION, IV TO L FA 20G, PATENT INTACT, PT ON HIGH FLOW OXYGEN, FIO2 65%, NO SOB NOTED, PT AWAKE, ALERT, ABLE TO LET NEEDS KNOWN, CALL LIGHT WITHIN REACH, WILL CONTINUE TO MONITOR.
--- NOTE | 2020-03-10 07:56 | NUR ---
HELPED PT SIT UP TO EAT BREAKFAST, TOLERATED WELL, NO DISTRESS NOTED, CALL LIGHT WITHIN REACH, WILL CONTINUE TO MONITOR.
--- NOTE | 2020-03-10 08:00 | NUR ---
PT ON HIGH FLOW NASAL CANNULA 35LPM FIO2 67%. PT NOT IN ANY DISTRESS OR SOB. WILL CONTINUE TO MONITOR.
[2020-03-10] MEDS: SODIUM CHLORIDE IV SCH (09:26)
[2020-03-10] MEDS: REMDESIVIR IV SCH (09:26)
[2020-03-10] MEDS: ZINC SULF 220 MG CAP PO SCH (09:27)
[2020-03-10] MEDS: VITAMIN D 400 IU TAB PO SCH (09:27)
[2020-03-10] MEDS: FAMOTIDINE 20 MG TAB PO SCH (09:27)
[2020-03-10] MEDS: ASCORBIC ACID 500 MG TAB PO SCH (09:27)
--- NOTE | 2020-03-10 09:27 | NUR ---
DUE MEDICATION ADMINISTERED, PT TOLERATED WELL, NO DISTRESS NOTED, CALL LIGHT WITHIN REACH, WILL CONTINUE TO MONITOR.
[2020-03-10] MEDS: DOCUSATE SODIUM 100 MG GELCAP PO SCH ×2 (09:28→21:39)
[2020-03-10] MEDS: ENOXAPARIN 100 MG/ML SYR SUBQ SCH (11:51)
--- NOTE | 2020-03-10 11:57 | NUR ---
DUE MEDICATION ADMINISTERED, PT TOLERATED WELL, LUNCH GIVEN TO PT, CALL LIGHT WITHIN REACH, WILL CONTINUE TO MONITOR. Addendum: 03/10/20 at 1419 by Emma Cueva RN DR. HAINES AT BEDSIDE TALKING TO PT
--- NOTE | 2020-03-10 13:13 | NUR ---
PLASMA TRANSFUSION STARTED, PT TOLERATED WELL, NO DISTRESS NOTED, CALL LIGHT WITHIN REACH, WILL CONTINUE TO MONITOR.
--- NOTE | 2020-03-10 13:47 | NUR ---
TRANSFUSION COMPLETED, PT TOLERATED WELL, NO DISTRESS NOTED, CALL LIGHT WITHIN REACH, WILL CONTINUE TO MONITOR.
--- NOTE | 2020-03-10 15:40 | NUR ---
PT WATCHING TV, NO DISTRESS NOTED, CALL LIGHT WITHIN REACH, WILL CONTINUE TO MONITOR.
--- NOTE | 2020-03-10 18:07 | NUR ---
DUE MEDICATION PER DR ORDER GIVEN, PT TOLERATED WELL, NO DISTRESS NOTED, CALL LIGHT WITHIN REACH. PT ADVISED TO GO ON PRONE POSITION. PT IS CURRENTLY ON PRONE, CALL LIGHT WITHIN REACH, WILL CONTINUE TO MONITOR.
--- NOTE | 2020-03-10 19:22 | NUR ---
ENDORSED PT TO POULTRY KILLER AT BEDSIDE
--- NOTE | 2020-03-10 19:30 | NUR ---
RECEIVED REPORT FROM DAY SHIFT RN, PT AAOX4, FOLLOWING COMMANDS, SR ON MONITOR, NO EDEMA NOTED, PALPABLE PULSES TO PERIPHERAL EXTREMITIES. PT ON HIGH FLOW 02 VIA NASAL CANNULA 60% FIO2 @ 30 L DELIVERY, DIMINISHED BREATH SOUNDS. ABD SOFT NON DISTENDED, DENIES N/V/D. PT VOIDING YELLOW URINE. SKIN INTACT. PERIPHERAL IV TO R FA 20G PATENT INTACT. BED LOCKED IN LOWEST POSITION. DENIES PAIN. WILL CONTINUE TO OBSERVE
--- NOTE | 2020-03-10 22:15 | NUR ---
CHG WIPES GIVEN TO PT FOR BATH, LINEN CHANGED. PT DENIES PAIN/SOB. WILL CONTINUE TO OBSERVE
[2020-03-11] VITALS (11 sets, daily range): BP systolic 98–151; BP diastolic 45–95
[2020-03-11] MEDS: ALBUTEROL HFA MDI 90 MCG/ACTUATION 8 GM INH SCH ×3 (00:05→13:45)
--- NOTE | 2020-03-11 00:30 | NUR ---
PT EYES CLOSED, AROUSABLE, NO CP/SOB @ THIS TIME. WILL CONTINUE TO OBSERVE.
[2020-03-11] MEDS: methylPREDNISolone SS 40 MG/ML VIAL IVP SCH ×4 (05:06→17:50)
[2020-03-11 06:15] LABS: MONOCYTES # (AUTO) 0.6 K/uL (0.8-1.0); RED CELL DISTRIBUTION WIDTH 14.4 % (11.6-13.7)
--- NOTE | 2020-03-11 06:15 | NUR ---
AM CARE RENDERED, NO ACUTE DISTRESS NOTED. WILL CONTINUE TO OBSERVE.
[2020-03-11 06:32] LABS: BASOPHILS % (AUTO) 0.3 % (0.0-2.0); HEMOGLOBIN 12.6 g/dL (12.0-18.0); LYMPHOCYTES # (AUTO) 0.8 K/uL (2.0-11.5); LYMPHOCYTES % (AUTO) 11.2 % (20.5-51.1); MEAN CORPUSCULAR HEMOGLOBIN 26 pg (27-31); MEAN CORPUSCULAR HGB CONC 33 g/dL (33-37); MONOCYTES % (AUTO) 9.5 % (1.7-9.3); NEUTROPHILS # (AUTO) 5.3 K/uL (1.8-7.7); PLATELET COUNT (AUTO) 256 K/uL (140-450); RED BLOOD CELL COUNT(AUTO) 4.82 MIL/uL (4.20-6.10); WHITE BLOOD COUNT (AUTO) 6.8 K/uL (4.8-10.8)
[2020-03-11 06:37] LABS: ANION GAP 13.7 (8-16); CARBON DIOXIDE 28.3 mmol/L (21-32); CREATININE 1.1 mg/dL (0.6-1.3)
[2020-03-11 06:38] LABS: MAGNESIUM 2.1 mg/dL (1.8-2.4); PHOSPHORUS 4.6 mg/dL (2.5-4.9)
--- NOTE | 2020-03-11 07:21 | NUR ---
REPORT GIVEN TO DAYSHIFT FOR CONTINUITY OF CARE.
--- NOTE | 2020-03-11 07:22 | NUR ---
RECEIVED BEDSIDE REPORT FROM TUBING MACHINE TENDER NURSE, PT STABLE, NO DISTRESS NOTED, PT ON ROOM AIR, IN PRONE POSITION, NO DISTRESS NOTED, PO2 98%, PT TOLERATED WELL, IV TO R FA 20G PATENT, INTACT, INFUSING WELL, INITIAL ASSESSMENT DONE, ALL SAFETY PRECAUTION MET, CALL LIGHT WITHIN REACH, WILL CONTINUE TO MONITOR.
[2020-03-11] MEDS: VITAMIN D 400 IU TAB PO SCH (09:42)
[2020-03-11] MEDS: DOCUSATE SODIUM 100 MG GELCAP PO SCH ×2 (09:43→21:00)
[2020-03-11] MEDS: FAMOTIDINE 20 MG TAB PO SCH (09:43)
[2020-03-11] MEDS: ASCORBIC ACID 500 MG TAB PO SCH (09:43)
[2020-03-11] MEDS: ZINC SULF 220 MG CAP PO SCH (09:43)
[2020-03-11] MEDS: SODIUM CHLORIDE IV SCH (10:07)
[2020-03-11] MEDS: REMDESIVIR IV SCH (10:07)
[2020-03-11] MEDS: ENOXAPARIN 100 MG/ML SYR SUBQ SCH ×2 (12:16)
--- NOTE | 2020-03-11 16:45 | NUR ---
DR SUMMERS AT BEDSIDE, OK TO TRANSFER TO TELE PER DR SUMMERS.
--- NOTE | 2020-03-11 19:17 | NUR ---
ENDORSED PT TO HOLIDAY DETECTOR OPERATOR NURSE, PT STABLE, NO DISTRESS NOTED, CALL LIGHT WITHIN REACH.
--- NOTE | 2020-03-11 19:30 | NUR ---
RECEIVED REPORT FROM DAYSHIFT NURSE. PATIENT AWAKE IN BED, ALERT AND ORIENTED. MAKES NEEDS KNOWN, FOLLOWS ALL COMMANDS WITHOUT ANY DISTRESS. ON ROOM AIR, SATURATIONS 98%. BREATHING IS EVEN AND UNLABORED, RESPIRATIONS 23. LUNG SOUNDS ARE DIMINISHED. PT REPORTS HAVING SMALL COUGH INTERMITTENTLY. DENIES PAIN, ONLY REPORTS HAVING SOME PAIN WHEN USING INCENTIVE SPIROMETER. PT ORIENTED TO NASAL CANNULA IF NEEDED. S1S2, SR ON MONITOR, BP STABLE. SKIN WARM AND DRY, AFEBRILE. RIGHT FA, 20G, FLUSHED AND PATENT WITHOUT SYMPTOMS, NS TKO. ABDOMEN SOFT AND NONTENDER, ACTIVE BOWEL SOUNDS. PATIENT IS CONTINENT. URINAL AT BEDSIDE. PT ABLE TO SELF TURN. CALL LIGHT AND VALUABLES WITHIN REACH. ORIENTED TO TREATMENT PLAN. VERBALIZES UNDERSTANDING. WILL CONTINUE TO MONITOR.
--- NOTE | 2020-03-11 21:10 | NUR ---
PT REFUSED SCHEDULED MED-COLACE, REPORTS "NOT NEEDING IT". PROVIDED EDUCATION ON INDICATION FOR MEDS, BUT PATIENT STILL REFUSED.
--- NOTE | 2020-03-11 22:15 | NUR ---
RESTING IN BED, ABLE TO SELF TURN. TALKS AND MAKES FULL SENTENCES WITHOUT SHORTNESS OF BREATH. DENIES PAIN. CALL LIGHT WITHIN REACH. VITALS STABLE. NO DISTRESS NOTED.
--- NOTE | 2020-03-11 23:40 | NUR ---
PATIENT AWAKE IN BED, OFFERED SLEEPING AID. PT REFUSED, REQUESTED FOOD INSTEAD. GAVE SANDWICHES AND JUICE. ADMINISTERED SCHEDULED MEDS. PROVIDED EDUCATION, VERBALIZES UNDERSTANDING. PATIENT SELF TURNS. REPORTS NOT HAVING ANY DIFFICULTY BREATHING ON ROOM AIR. DENIES PAIN. CALL LIGHT WITHIN REACH.
[2020-03-12] VITALS: BP 143/73
[2020-03-12] MEDS: methylPREDNISolone SS 40 MG/ML VIAL IVP SCH ×3 (00:08→12:42)
[2020-03-12] MEDS: ENOXAPARIN 100 MG/ML SYR SUBQ SCH ×2 (00:38→12:41)
--- NOTE | 2020-03-12 02:15 | NUR ---
PT POSITIONED HIMSELF TO PRONE POSITION. ATTEMPTED TO PUT LEADS ON BACK BUT PATIENT READJUSTED and IS NOW RIGHT LATERAL POSITION. REPORTS NOT BEING ABLE TO GET COMFORTABLE. PROVIDED EXTRA PILLOWS AND ASSISTED WITH COMFORTABLE POSITION. ALL NEEDS MET. PATIENT STABLE
--- NOTE | 2020-03-12 03:40 | NUR ---
EMPTIED 1,100 ML OF CLEAR YELLOW URINE. BROUGHT MORE ICE WATER PER PT REQUEST.
[2020-03-12 04:00] VITALS: BP 127/96
[2020-03-12 06:07] LABS: BASOPHILS % (AUTO) 0.2 % (0.0-2.0); HEMOGLOBIN 12.7 g/dL (12.0-18.0); LYMPHOCYTES # (AUTO) 0.6 K/uL (2.0-11.5); LYMPHOCYTES % (AUTO) 11.7 % (20.5-51.1); MEAN CORPUSCULAR HEMOGLOBIN 26 pg (27-31); MEAN CORPUSCULAR HGB CONC 33 g/dL (33-37); MEAN CORPUSCULAR VOLUME 78.6 fL (80-94); MONOCYTES # (AUTO) 0.5 K/uL (0.8-1.0); MONOCYTES % (AUTO) 9.6 % (1.7-9.3); NEUTROPHILS # (AUTO) 4.3 K/uL (1.8-7.7); NEUTROPHILS % (AUTO) 78.5 % (42.2-75.2); PLATELET COUNT (AUTO) 245 K/uL (140-450); RED BLOOD CELL COUNT(AUTO) 4.83 MIL/uL (4.20-6.10); RED CELL DISTRIBUTION WIDTH 14.4 % (11.6-13.7); WHITE BLOOD COUNT (AUTO) 5.4 K/uL (4.8-10.8)
[2020-03-12 06:15] LABS: ALBUMIN 2.9 g/dL (3.4-5.0); ANION GAP 11.7 (8-16); CARBON DIOXIDE 27.7 mmol/L (21-32); CREATININE 1.1 mg/dL (0.6-1.3); MAGNESIUM 2.2 mg/dL (1.8-2.4); POTASSIUM 4.4 mmol/L (3.5-5.1)
[2020-03-12 07:03] LABS: TOTAL BILIRUBIN 0.3 mg/dL (0.0-1.0)
[2020-03-12 07:04] LABS: PHOSPHORUS 3.3 mg/dL (2.5-4.9)
--- NOTE | 2020-03-12 07:15 | NUR ---
RECEIVED REPORT FROM NIGHT NURSE, PT IN STABLE CONDITION AWAITING TO BE TRANSFERRED TO [facility] UNIT. PT ASLEEP, NO DISTRESS NOTED, RESPIRATIONS EVEN AND UNLABORED ON ROOM AIR. DROPLET PRECAUTIONS IN PLACE FOR COVID (+). SKIN INTACT. CONTINENT, ABLE TO AMBULATE WITH ASSISTANCE. DENIES PAIN. WILL PREPARE FOR TRANSFER.
[2020-03-12] MEDS: ALBUTEROL HFA MDI 90 MCG/ACTUATION 8 GM INH SCH ×2 (07:45→13:56)
--- NOTE | 2020-03-12 07:58 | NUR ---
PT DROPPED OFF AT [facility]. LEFT SBAR WITH CHARGE NURSE ESTHELA SINCE ASSIGNED NURSE IS BUSY WITH ANOTHER PT. WILL WAIT FOR CALL FROM ASSIGNED NURSE TO GIVE REPORT.
[2020-03-12 08:00] VITALS: BP 127/51
--- NOTE | 2020-03-12 08:00 | NUR ---
RECEIVED REPORT FROM ICU NURSE MARKELL. PATIENT IN STABLE CONDITION, RESPIRATIONS EVEN AND UNLABORED. VITAL SIGNS WNL, O2 SAT IS 93 ON ROOM AIR. NO DISTRESS NOTED. PATIENT DENIES SOB OR PAIN. SAFETY MEASURES IN PLACE, BED IN LOWEST POSITION, CALL LIGHT WITHIN REACH. WILL CONTINUE TO MONITOR.
[2020-03-12] MEDS: ASCORBIC ACID 500 MG TAB PO SCH (09:08)
[2020-03-12] MEDS: VITAMIN D 400 IU TAB PO SCH (09:09)
[2020-03-12] MEDS: ZINC SULF 220 MG CAP PO SCH (09:09)
[2020-03-12] MEDS: FAMOTIDINE 20 MG TAB PO SCH (09:09)
[2020-03-12] MEDS: DOCUSATE SODIUM 100 MG GELCAP PO SCH (09:09)
--- NOTE | 2020-03-12 10:19 | NUR ---
PATIENT RESTING IN BED ON HIS CELL PHONE. DENIES PAIN OR SOB. NO SIGNS OF DISTRESS NOTED. WILL CONTINUE TO MONITOR.
[2020-03-12 12:00] VITALS: BP 122/58
--- NOTE | 2020-03-12 12:30 | NUR ---
SCHEDULED MEDICATIONS ADMINISTERED. PT TOLERATED WELL. NO DISTRESS NOTED. WILL CONTINUE TO MONITOR.
--- NOTE | 2020-03-12 13:41 | NUR ---
AMBULATED PT AROUND HIS ROOM FOR 8 MINUTES PER ORDER. O2 SATS BETWEEN 90-95. NO SOB, NO SIGNS OF DISTRESS.
--- NOTE | 2020-03-12 13:46 | NUR ---
03/12/20 RD FOLLOW UP COMPLETED PLEASE REFER TO NUTRITION ASSESSMENT UNDER CARE ACTIVITY FOR ESTIMATED NUTRITIONAL NEEDS. 1. CONTINUE MECHANICAL SOFT DIET TOLERATED 2. CONTINUE ENSURE BID 3. ENCOURAGE INCREASING PO INTAKE 4. PROVIDE NUTRITION EDUCATION ON COVID-[address] TO FOLLOW-UP 3-5 DAYS, MODERATE RISK KISHA GARCIA RD
[2020-03-12] MEDS ORDERED: METH4TAB3 PO (15:12)
[2020-03-12] MEDS ORDERED: AZIT250T11 PO (15:12)
--- NOTE | 2020-03-12 15:45 | NUR ---
PT IS IN BED PLAYING ON HIS PHONE. HE IS AWAITING DISCHARGE. NO SIGNS OF DISTRESS. O2 SAT IS 97% ON ROOM AIR. WILL GET DISCHARGE PAPERWORK READY AND HAVE PATIENT SIGN.
[2020-03-12 16:00] VITALS: BP 133/80
[2020-03-12 16:53] VITALS: BP 133/80
--- NOTE | 2020-03-12 18:00 | NUR ---
PATIENT DISCHARGED HOME. PICKED UP BY FAMILY IN PRIVATE VEHICLE IN STABLE CONDITION. IV REMOVED, LUMEN INTACT. O2 ON ROOM AIR 92%. NO SIGNS OF DISTRESS NOTED. ALL DISCHARGE PAPERWORK SIGNED AND COPIES WITH INSTRUCTIONS GIVEN.
== END 2020-03-12 18:10 | disposition home or self-care (01) | DRG 720 ==
LOC: MED 21:16 → EEVIPCON 21:16 → MTU 23:00 → MIC 03-08 09:07 → MTU 03-12 08:47
PROVIDERS: ADMIT General Practice; ATTEND General Practice
PROC: 30233P1 Transfusion of Nonautologous Frozen Red Cells into Peripheral Vein, Percutaneous Approach (ICD-10-PCS; principal; 2020-03-08)
DX: A41.9 Sepsis, unspecified organism (principal); U07.1 COVID-19; E43 Unspecified severe protein-calorie malnutrition; J96.01 Acute respiratory failure with hypoxia; N17.0 Acute kidney failure with tubular necrosis; J11.08 Influenza due to unidentified influenza virus with specified pneumonia; E83.42 Hypomagnesemia; E66.01 Morbid (severe) obesity due to excess calories; Z68.42 Body mass index [BMI] 45.0-49.9, adult; Z71.3 Dietary counseling and surveillance; J12.89 Other viral pneumonia; Z87.01 Personal history of pneumonia (recurrent)
CPT/HCPCS: 36415; 36600; 71045; 80048; 80053; 80305; 81003; 82550; 82728; 82803; 83036; 83605; 83615; 83735; 83880; 84100; 84443; 84484; 85025; 85379; 85384; 85610; 85651; 85730; 86140; 86900; 86901; 87040; 87081; 87804; 96361; 96365; 99285; A4330; J0696; J1650; J1940; J2920; J3475; J7030; J7060; P9017; Q0092; U0003-CS